=== PATIENT | female | born 1940 | race Two or more races ===

== ENCOUNTER → 2024-11-22 | Emergency (ER) | payer OTHER ==
[~2024-11-22] VITALS: Ht 160 cm; Wt 65.8 kg
[~2024-11-22] MED LIST: ALL DAY ALLERGY10 M3; DIPHENHYDRAMINE HCL 50 MG/ML VIAL 1ML IM ONE; DIPHENHYDRAMINE HCL 50 MG/ML VIAL 1ML ONE; IVERMECTIN3 MG PO; METFORMIN HCL500 MG
[2024-11-22 14:07] LABS: BASO % 0.3 % (0.1-1.2); EOS # 1.54 (0.04-0.54); EOS % 13.3 % (0.7-7.0); HEMATOCRIT 35.1 % (34.1-44.9); HEMOGLOBIN 11.3 g/dL (11.2-15.7); LYMPH # 3.33 (1.18-3.74); LYMPH % 28.7 % (19.3-53.1); MEAN CORPUSCULAR HEMOGLOBIN 29.7 pg (25.6-32.2); MONO # 0.97 (0.24-0.82); MONO % 8.4 % (4.7-12.5); NEUT # 5.68 (1.56-6.13); PLATELET COUNT 403 K/uL (163-369); RED BLOOD COUNT 3.81 M/uL (3.93-5.22); RED CELL DISTRIBUTION WIDTH 13.1 % (11.6-14.4)
[2024-11-22 14:43] LABS: ALBUMIN 3.5 gm/dL (3.4-5.0); BILIRUBIN TOTAL 0.73 mg/dL (0.3-1.2); BILIRUBIN,CONJUGATED 0.22 mg/dL (0.0-0.2); BILIRUBIN,UNCONJUGATED 0.51 mg/dL (0.0-0.6); CALCIUM 9.2 mg/dL (8.5-10.1); CREATININE SERUM 1.32 mg/dL (0.55-1.02); GFR 38.34; GLOBULINA 4.2 G/DL (2.4-3.5); POTASSIUM 4.6 mEq/L (3.5-5.1); TOTAL PROTEIN 7.7 gm/dL (6.4-8.2)
== END | disposition home or self-care (01) ==
LOC: ER 11:50
PROVIDERS: General Practice
DX: R21 Rash and other nonspecific skin eruption (principal); I10 Essential (primary) hypertension; E11.9 Type 2 diabetes mellitus without complications; Z79.84 Long term (current) use of oral hypoglycemic drugs